=== PATIENT | female | born 2000 | race Caucasian/White ===

== ENCOUNTER 2025-04-06 17:03 | Outpatient (CLI) | payer BC, SELFPAY ==
--- NOTE | 2025-04-06 17:30 | CRLHL7_ITS ---
For Patients: As a result of the Cures Act, medical imaging exams and procedure reports are released immediately into your electronic medical record. You may view this report before your referring provider. If you have questions, please contact your health care provider. OB ULTRASOUND INDICATION: Dating and viability. TECHNIQUE: Real time grayscale imaging of the fetus was performed. Transvaginal. Transvaginal imaging performed to better demonstrate the endometrium and ovaries. LMP: 02/08/2025. DONNA by LMP: 11/15/2025. GA: 8 w, 1 d. Previous US: No. CRL: 1.6 cm. 8 w 0 d. DONNA: 11/16/2025. FHR: 163 BPM. Gestational sac: 3.3 cm. Appears within normal limits. Yolk sac: 2.7 mm. Appears within normal limits. Right ovary: 1.7 x 3.0 x 1.7 cm. CL. Left ovary: 2.7 x 1.9 x 22.5 cm. CL? IMPRESSION: 1. Single living intrauterine measures 8 weeks 0 days with sonographic due date 11/16/2025. 2. Benign hypoechoic left ovarian cyst measures 1.6 x 1.5 x 1.6 cm. Mostly anechoic right ovarian cyst measures 1.4 x 1.4 x 1.5 cm. Ranjit Joe M.D. Diagnostic Radiologist [email or web address] MYRNA/maurisio forde/Dictated by: Ranjit Joe MD @ 04/07/2025 8:21:00 AM (Electronically Signed)
== END 2025-04-06 17:04 | disposition home or self-care (01) ==
LOC: US 17:04
PROVIDERS: PCP Family Medicine; Visit Provider Registered Nurse
DX: O34.81 Maternal care for other abnormalities of pelvic organs, first trimester (principal); N83.11 Corpus luteum cyst of right ovary; N83.12 Corpus luteum cyst of left ovary; Z3A.08 8 weeks gestation of pregnancy
CPT/HCPCS: 76817; 81513; 83021; 86592; 86703; 86704; 86706; 86762; 86787; 86803; 86850; 86900; 86901; 87086; 87340; 87481; 87491; 87591; 87661

== ENCOUNTER 2025-05-05 15:16 | Outpatient (CLI) | payer SELFPAY ==
[2025-05-05 21:32] LABS: Bacterial Vaginosis* Negative (Negative); Candida glab/krus NOT DETECTED (No Detected)
== END 2025-05-05 15:17 | disposition home or self-care (01) ==
PROVIDERS: PCP Family Medicine; Visit Provider Obstetrics & Gynecology
DX: N89.8 Other specified noninflammatory disorders of vagina (principal); Z13.79 Encounter for other screening for genetic and chromosomal anomalies
CPT/HCPCS: 81513; 87481; 87661

== ENCOUNTER 2025-06-10 08:33 | Emergency (ER) | payer OTHER, SELFPAY ==
[2025-06-10 08:45] VITALS: BP 128/72; PULSE 65; RESP 18; TEMP 36.8; O2SAT 100; BMI 30.2
--- NOTE | 2025-06-10 09:07 | ED_ITS ---
HPI - General Adult General Chief complaint: Headache/Migraine Stated complaint: 17 weeks Headache ongoing 4 days Time Seen by Provider: 06/10/25 08:39 History of Present Illness HPI narrative: Headache that started 4 days ago. Last night was the worst. Took Tylenol at midnight. No other neurological changes noted. 25-year-old woman presenting to the emergency department with concern of a headache. History of migraines but this is different. She has been having some degree of headache over the last 3 days or so. 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 This last evening headache markedly increased. She describes headache from her left domi orbital and hindu area all the way back to her neck. No injury noted. She could not even sleep last night for the headache. No visual changes. No weakness. No vomiting. No fever. She is 17 weeks currently. Related Data Home Medications ?Medication ?Instructions ?Recorded ?Confirmed docosahexaenoic acid 200 mg mg PO 04/06/25 06/02/25 capsule ( DHA) Allergies Allergy/AdvReac Type Severity Reaction Status Date / Time No Known Drug Allergies Allergy Verified 06/02/25 14:52 Review of Systems Status of ROS: Reports: 6 or more systems reviewed and unremarkable except as noted in History and below PFSH PFS Surgical History History of tonsillectomy ?Z90.89 - Acquired absence of other organs (ICD-10) Social History What is your current living situation?: I presently have a place to live Problems where you live: no known problems In the past 12 months, utilities in danger of being shut off: no In past 12 months, lack of transportation kept you from medical appts, meetings, work, or getting things needed for daily living: no In the past 12 mos, have been you worried that your food would run out before you had money to buy more?: never true In the past 12 mos, the food you bought just didn't last and you didn't have money to buy more?: never true Smoking Status: Never smoker How often do you have a drink containing alcohol: never AUDIT-C Alcohol total score: 0 Non-prescribed substance use: denies use How often does anyone, including family, friends and others, physically hurt you : never How often does anyone, including family, friends and others, insult or talk down to you: never How often does anyone, including family, friends and others, threaten you with harm: never How often does anyone, including family, friends and others, scream or curse at you: never Exam Narrative: Exam Narrative: Very pleasant. Is demonstrating some photosensitivity. Cranial nerves 2-12 intact. Pupils 3 mm and equal. Neck is supple. She is sore in the left paracervical musculature posteriorly into the occipital insertion. Is not demonstrating swelling/pulsatile swelling over the temples. Moving all extremities fluidly without apparent difficulty. Heart in regular rate and rhythm. Lungs appear clear. Abdomen is soft and nontender. Const: Vital Signs, click to edit/add: Vital Signs - 24 hr 06/10/25 08:45 06/10/25 10:21 Temperature 98.3 F Pulse Rate [Pulse Oximeter] 65 53 L Respiratory Rate 18 16 Blood Pressure [Ri ght Upper Arm] 128/72 113/67 Pulse Oximetry 100 100 Oxygen Delivery Me thod Room Air Room Air Documenting provider has reviewed patient's vital signs: yes Course Vital Signs Vital signs: Initial Vital Signs Temperature 98.3 F 06/10/25 08:45 Temperature Source Temporal Artery Scan 06/10/25 08:45 Pulse Rate 65 06/10/25 08:45 Respiratory Rate 18 06/10/25 08:45 Blood Pressure 128/72 06/10/25 08:45 Blood Pressure Mean 90 06/10/25 08:45 Blood Pressure Position Sitting 06/10/25 08:45 Pulse Oximetry 100 06/10/25 08:45 Oxygen Delivery Method Room Air 06/10/25 08:45 Vital Signs Temperature 98.3 F 06/10/25 08:45 Pulse Rate 65 06/10/25 08:45 Respiratory Rate 18 06/10/25 08:45 Blood Pressure 128/72 06/10/25 08:45 Pulse Oximetry 100 06/10/25 08:45 Oxygen Delivery Method Room Air 06/10/25 08:45 Temperature 98.3 F 06/10/25 08:45 Pulse Rate 62 06/10/25 12:00 Respiratory Rate 16 06/10/25 12:00 Blood Pressure 106/67 06/10/25 12:00 Pulse Oximetry 100 06/10/25 12:00 Oxygen Delivery Method Room Air 06/10/25 12:00 Medications Administered Medications: Discontinued Medications Generic Name Dose Route Start Last Admin Trade Name Josh PRJewell Reason Stop Dose Admin Diphenhydramine HCl 12.5 mg 06/10/25 10:48 06/10/25 11:21 Diphenhydramine 50 Mg/Ml Inj IVP 06/10/25 10:49 12.5 mg ONCE ONE Administration Sodium Chloride 1,000 mls @ 1,000 mls/hr 06/10/25 10:48 06/10/25 12:05 0.9 % Sodium Chloride 1000 Ml IV 06/10/25 11:47 Infused .Q1H ONE Infusion Lidocaine HCl 2 ml 06/10/25 09:22 06/10/25 16:24 Lidocaine 1% 5 Ml (Pf) 5 Ml Vial INJECTION 06/10/25 09:23 2 ml ONCE ONE Administration Morphine Sulfate 4 mg 06/10/25 10:48 06/10/25 11:21 Morphine 4 Mg/Ml Inj IVP 06/10/25 10:49 4 mg ONCE ONE Administration Medical Decision Making MDM Narrative Medical decision making narrative: Certainly could have small during viral illness or other infectious etiology. Blood pressure is reassuring so I do not think this is issue of preeclampsia. Appears to have a tension component but also periorbital in the setting of a history of migraines. Discussed the larger workup verses focusing on symptom relief initially. She would appreciate some symptom relief. With a periorbital component might benefit from some intranasal lidocaine. We did attempt this and while it did briefly settle the headache headache did return. Decided to place IV and IV fluids. Morphine and diphenhydramine. Will check urinalysis for potential infection and proteinuria. She has not yet felt movement. I did perform point of care ultrasound with visualization of appropriately sized fetus I think. Measurements were not taken however. Active movement with what appears to be normal heart rate. Keri appeared reassured. She shared these later with her boyfriend who arrived. On reassessment still with some headache but tolerable. She would like to try to go home and rest. See patient discharge plan for further discussion I'm happy you are feeling better. Rest today. Consider following up for massage or maybe even rn progressive care unit as discussed. Stretching. Would also do those forward neck pulldown stretches repeated over the course of a day as demonstrated. See handout also on stretches/exercises for the upper back that might be beneficial. Otherwise stay well-hydrated. Be seen again for marked increase in persistent headache, any new and focal weakness, associated fever. Medical Records Medical records reviewed: Yes I reviewed the patient's medical records Lab Data Lab results reviewed: Yes I reviewed the patient's lab results Labs: Lab Results 06/10/25 06/10/25 Range/Units 09:21 09:40 Urine Color Yellow (Yellow) Urine Appearance Clear (Clear) Urine pH 7.0 (5.0-8.5) Ur Specific [place] 1.010 (1.000-1.030) Urine Protein Negative (Negative) Urine Glucose (UA) Negative (Negative) Urine Ketones Negative (Negative) Urine Blood Negative (Negative) Urine Nitrite Negative (Negative) Urine Bilirubin Negative (Negative) Urine Urobilinogen 0.2 (0.2-1.0) Ur Leukocyte Esterase Negative (Negative) Urine RBC 0-2 (0-2) Urine WBC 0-2 (0-5) Ur Squamous Epith Cells Few (None-Few) Urine Bacteria Few A (None) SARS-CoV-2 (PCR) Negative SARS-CoV-2 (Negative) Influenza Type A (PCR) Negative PCR FLU A (Negative) Influenza Type B (PCR) Negative PCR FLU B (Negative) Discharge Plan Discharge Clinical Impression: Headache in Patient Disposition: Home w/ Parent or Adult Condition: Improved Additional Instructions: I'm happy you are feeling better. Rest today. Consider following up for massage or maybe even rn progressive care unit as discussed. Stretching. Would also do those forward neck pulldown stretches repeated over the course of a day as demonstrated. See handout also on stretches/exercises for the upper back that might be beneficial. Otherwise stay well-hydrated. Be seen again for marked increase in persistent headache, any new and focal weakness, associated fever. Prescriptions: No Action DHA 200 mg capsule PO Follow Up/Referrals: Debi Metzger MD [Staff Physician, Family Practice] Stand Alone Forms: [employer] Info Instructions
[2025-06-10 10:19] LABS: Appearance Urine Clear (Clear)
[2025-06-10 10:21] VITALS: BP 113/67; PULSE 53; RESP 16; O2SAT 100
[2025-06-10 10:37] LABS: PCR FLU A Negative PCR FLU A (Negative); PCR FLU B Negative PCR FLU B (Negative); SARS PCR* Negative SARS-CoV-2 (Negative)
[2025-06-10 11:00] VITALS: BP 108/60; PULSE 67; RESP 16; O2SAT 100
[2025-06-10 11:15] VITALS: BP 120/73; PULSE 62; RESP 16; O2SAT 100
[2025-06-10] MEDS: MORPHINE 4 MG/ML INJ IVP (11:21)
[2025-06-10 11:30] VITALS: BP 110/63; PULSE 66; RESP 16; O2SAT 100
[2025-06-10 12:00] VITALS: BP 106/67; PULSE 62; RESP 16; O2SAT 100
[2025-06-10] MEDS: LIDOCAINE 1% 5 ml (pf) 5 ML VIAL 2 ML INJECTION (16:24)
== END 2025-06-10 12:25 | disposition home or self-care (01) ==
PROVIDERS: Emergency Provider Family Medicine
DX: R51.9 Headache, unspecified (principal); Z3A.17 17 weeks gestation of pregnancy
CPT/HCPCS: 81001; 87086; 87636; 96374; 96375; 99284; J1200; J2270; J7030